=== PATIENT | male | born 1995 | race Caucasian/White ===

== ENCOUNTER 2022-08-08 21:54 | Emergency (ER) | payer OTHER ==
[2022-08-08 22:12] VITALS: BP 135/87
--- NOTE | 2022-08-08 22:39 | XRAY Report ---
PROCEDURE: Shoulder 3 View LT INDICATIONS: pain TECHNIQUE: 3 views of the shoulder were acquired. COMPARISON: None. FINDINGS: Bones: No fractures or dislocations. No suspicious bony lesions. Visualized ribs appear intact. Soft tissues: No suspicious soft tissue calcifications. Faint appearance of opacity within the par tially visualized lung bases. IMPRESSION: No visualized acute fracture or dislocation. However, occult injury cannot be excluded. Recommend suri rt interval imaging follow-up in 7-10 days as clinically indicated for additional evaluation. Faint visualized opacity within the left base. This could represent pneumonia. Artifact cannot be exc luded. CT chest is recommended for further evaluation. Reviewed by: Liane Yanez MD on 08/08/2022 10:38 PM PDT Approved by: Liane Yanez MD on 08/08/2022 10:38 PM PDT Station ID: [id number]
--- NOTE | 2022-08-08 23:12 | ED Physician Documentation ---
PD HPI UPPER EXT INJURY - Stated complaint Stated Complaint: LT SHOULDER PAIN - Chief complaint Chief Complaint: Ext Problem - History obtained from History obtained from: Patient - Additonal information Additional information: The patient comes to the emergency department chief complaint of pain in his left neck and shoulder after working out a couple of days ago. He states that he was doing some dumbbell flies when he felt a pop somewhere in his left trapezius distribution. He states that both of his shoulders felt sore although it was worse on the left. The right when ended up getting better but the patient states that the left when has remained painful and seems actually worse today then that has been the 2 preceding days. He states that it just hurts to do anything. He states the pain is not really in the shoulder joint itself but more in the muscle. No other complaints at this time. No numbness or tingling. No weakness. PD PAST MEDICAL HISTORY - Present Medications Home Medications: Ambulatory Orders Medication Instructions Recorded Confirmed HYDROcod/ACETAM 5/325 [Derwood 5/325] 1 - 2 tablet PO Q6H PRN #14 tablet 08/08/22 - Allergies Allergies/Adverse Reactions: Allergies Allergy/AdvReac Type Severity Reaction Status Date / Time No Known Drug Allergies Allergy Verified 08/08/22 22:09 PD ED PE NORMAL - Vitals Vital signs reviewed: Yes - General General: Alert and oriented X 3, No acute distress, Well developed/nourished - HEENT HEENT: Atraumatic, PERRL, EOMI, Moist mucous membranes - Neck Neck: Supple, no meningeal sign, No bony TTP, Other (Tenderness to palpation over the left neck musculature extending across toward the shoulder in the trapezius distribution.) - Cardiac Cardiac: Strong equal pulses - Respiratory Respiratory: No respiratory distress - Back Back: No spinal TTP, Other (Tenderness extending along the left paraspinal musculature of the neck and in to the upper back.) - Derm Derm: Normal color, Warm and dry, No rash - Extremities Extremities: No deformity, Other (Tenderness to palpation of the trapezius ridge on the left extending toward the shoulder but not involving the shoulder joint. Muscle spasm with knot is palpable in the mid trapezius ridge in the musculature. Full range of motion of left shoulder at the shoulder joint.) - Neuro Neuro: Alert and oriented X 3 - Psych Psych: Normal mood, Normal affect Results - Vitals Vitals: Vital Signs - 24 hr 08/08/22 22:05 Temperature 35.9 C L Heart Rate 67 Respiratory 100 H Rate Blood Pressure 135/87 H Oxygen O2 Source Room air - Rads (name of study) Left shoulder x-ray series Relevant Findings:: Final report received, See rad report (Negative) PD Medical Decision Making - ED course Complexity details: reviewed results, re-evaluated patient, considered differential, d/w patient ED course: I discussed with the patient that he most likely strained his left trapezius muscle, and that I do not find any evidence of injury to the joints or to the bones. We have discussed that this will most likely blow over on its own but we have also discussed the timeline for follow-up, should the symptoms persist. We discussed the usual indications for return we have discussed symptomatic management at home. Departure - Departure Disposition: 01 Home, Self Care Clinical Impression: Trapezius strain Qualifiers: Encounter type: initial encounter Laterality: left Qualified Code(s): S46.812A - Strain of other muscles, fascia and tendons at shoulder and upper arm level, left arm, initial encounter Condition: Stable Instructions: ED Sprain Strain Neck, ED Strain Muscle Ext Prescriptions: HYDROcod/ACETAM 5/325 [Derwood 5/325] 1 - 2 tablet PO Q6H PRN #14 tablet PRN Reason: Pain Comments: Your x-ray series looks good. Your tenderness is over the trapezius muscle and does not seem to involve the joint at all. Most likely, you have strained the muscle and now it is inflamed and spasming. There is no quick fix for this kind of injury and it really just needs time to get better. Ice, heat, massage, and stretching can be helpful, as can some medications. You have been on a number of medications already which have helped marginally. If you wish to take something stronger for pain instead over the next couple of days and see if this helps to relax and resolve your symptoms, you may take the pain medication that has been prescribed. The prescription for this has been electronically transmitted to the [facility] pharmacy on [address] at your request. Many muscle strains last for a few weeks before finally resolving, but you should begin to notice improvement after the first week. If you are not noticing any improvement in all in the next couple of weeks, you will need to follow-up with your primary doctor to determine whether you need to have MRI done or not. Discharge Date/Time: 08/08/22 23:18
== END 2022-08-08 23:18 | disposition home or self-care (01) ==
LOC: ED 21:54
DX: S46.912A Strain of unspecified muscle, fascia and tendon at shoulder and upper arm level, left arm, initial encounter (principal); X50.0XXA Overexertion from strenuous movement or load, initial encounter; Y93.B3 Activity, free weights
CPT/HCPCS: 99283